=== PATIENT | male | born 1995 | race Caucasian/White ===

== ENCOUNTER 2024-05-07 03:03 | Emergency (ER) | payer SELFPAY ==
[~2024-05-07] VITALS: Ht 177.8 cm; Wt 90.7 kg
[2024-05-07 03:11] VITALS: BP 134/95; PULSE 91; RESP 16; TEMP 98.1; O2SAT 99
== END 2024-05-07 03:27 ==
LOC: MED 03:03
DX: V49.9XXA Car occupant (driver) (passenger) injured in unspecified traffic accident, initial encounter; Y93.89 Activity, other specified; Y92.89 Other specified places as the place of occurrence of the external cause; Y99.8 Other external cause status
CPT/HCPCS: 99283